=== PATIENT | male | born 2005 | race Caucasian/White ===

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

== ENCOUNTER 2024-01-05 10:51 | Emergency (ER) | payer SELFPAY ==
--- NOTE | ~2024-01-05 | XR_ITS ---
EXAMINATION: XR CHEST CLINICAL INFORMATION: Chest tightness COMPARISON: Chest radiograph from 02/10/2020 TECHNIQUE: 2 views of the chest were obtained. FINDINGS: No focal consolidation. No pneumothorax. Trachea is midline. Cardiac mediastinal silhouette is not enlarged. No large pleural effusion. Slight levocurvature of the thoracolumbar spine. Soft tissues are unremarkable. XR/XR chest 2V IMPRESSION: 1. No acute cardiopulmonary process. 2. Slight levocurvature of the thoracolumbar spine. Electronically signed by: Adriana Jones MD 01/05/2024 12:49 PM EDT
--- NOTE | 2024-01-05 10:54 | ECG_ITS ---
Test Reason : CHEST PAIN Blood Pressure : / mmHG Vent. Rate : 075 BPM Atrial Rate : 075 BPM P-R Int : 148 ms QRS Dur : 088 ms QT Int : 350 ms P-R-T Axes : 077 066 049 degrees QTc Int : 390 ms Normal sinus rhythm with sinus arrhythmia Normal ECG When compared with ECG of 10-FEB-2020 18:03, PREVIOUS ECG IS PRESENT No significant change was found Referred By: Generic ED Physician Electronically Signed By:VICKI PHILLIPS
[2024-01-05 11:18] VITALS: BP 113/78; PULSE 81; RESP 16; TEMP 36.9; O2SAT 98; BMI 19.7
--- NOTE | 2024-01-05 11:18 | ED.CHESTPAIN ---
HPI - Chest Pain General Chief Complaint: Chest Pain Stated Complaint: Chest pain Time Seen by Provider: 01/05/24 12:03 History of Present Illness ED Provider: Marlo MARTINEZ narrative: 18 y/o M patient; without significant PMH; presents from home reporting a few weeks of intermittent chest pain. The patient states the pain is non-radiating, substernal, and feels like a hand is squeezing his heart. Associated with shortness of breath and lightheadedness when chest pain occurs. He notes symptoms worse with hot conditions. Non-exertional chest pain. Did have one episode of NBNB vomiting and diarrhea today. He denies: abdominal pain, fever or chills, cough/congestion. No known sick contacts. No self or family history of cardiac disease. Patient is a smoker. Related Data Previous Rx's ?Medication ?Instructions ?Recorded ibuprofen 600 mg tablet 600 mg PO Q6H PRN pain #30 tabs 03/13/23 Allergies Allergy/AdvReac Type Severity Reaction Status Date / Time No Known Allergies Allergy Verified 01/05/24 11:20 [No Known Allergies*] Review of Systems Review of Systems: Yes all other systems are reviewed and are negative Neurologic: Denies Sensory deficit (Neuro) [facility] Past Medical History Attestation statement: The following information was validated with the patient. Source: old records reviewed Medical History Childhood asthma No known health problems Social History Social History Alcohol intake: never Smoked in Last 30 Days: No Use of substances other than those prescribed or required for medical reasons: Yes Substance Use Type: Marijuana Substance Use Frequency: Occasionally Advance Directives: No Advance Directives Information Provided: Yes Physical Exam Vital Signs: Vital Signs: Last Vital Signs Temp 98.5 F 01/05/24 11:18 Pulse 74 01/05/24 12:55 Resp 16 01/05/24 12:55 BP 113/76 01/05/24 12:55 Pulse Ox 100 01/05/24 12:55 O2 Del Method Room Air 01/05/24 12:55 BMI result Body Mass Index 19.7 Patient is afebrile and hemodynamically stable. Const: General: cooperative Orientation/consciousness: patient oriented x3 HEENT: Head: Yes normal to inspection and Yes atraumatic Eyes: General: appearance normal, both eyes and all related structures Pupils: Equal, round and reactive pupils present Neck: Neck: Yes normal visual inspection and Yes full ROM Chest: Chest palpation & inspection: normal inspection of the chest and normal palpation of entire chest wall Resp: Effort & Inspection: normal respiratory effort, able to speak in complete sentences, no cough and no respiratory distress Cardio: Rate: regular rate Rhythm: regular rhythm Peripheral pulses: Peripheral pulses 2+ throughout GI: Inspection: Yes normal to inspection and No Abdominal wall edema Palpation (GI): Soft to palpation, not firm, nontender, no guarding and not rigid Auscultation: normal bowel sounds Neuro: General: patient oriented x3 Cranial nerves: Yes Equal, round and reactive pupils present Motor exam (neuro): 5/5 motor strength present throughout Sensory Exam: No Sensory deficit (Neuro) Course Course Course Narrative: This is a Rapid Medical Examination (RME) performed by German Costello PA-C in triage. Full HPI, ROS, assessment and treatment plan per primary provider in the Main ED. 18 yo male presents to the ER for evaluation of intermittent central chest pains that started a couple of weeks ago. Worse when he is exposed to chemicals at work. He endorses SOB and lightheadedness along with the chest pain and tightness. AAO x3, with RRR on exam with clear lungs but diminished at the bases, discomfort w/ deep breaths. Plan: CXR, labs, EKG Reevaluation(s) Reevaluation #1: Patient is afebrile and hemodynamically stable. Reviewed triage orders. No leukocytosis. CXR unremarkable. CXR unremarkable for pneumonia, pneumothorax, aortic dissection. EKG reassuring without evidence of arrhythmia or CAD. Patient is PERC negative - unlikely pulmonary embolism. Troponin negative. Elevated total bilirubin - likely indirect - elevated at baseline. Patient is well appearing. Diagnostic studies reassuring. Recommend patient follow up with his PCP within the next 1 - 2 days for a re-evaluation. Plan: Discharge to home with PCP follow up Return precautions given Medical Decision Making Lab Data 01/05/24 12:07 01/05/24 12:07 Labs: Lab Results 01/05/24 Range/Units 12:07 WBC 5.4 (4.8-10.8) X10*3/uL RBC 5.26 (4.60-5.80) X10*6/uL Hgb 15.8 (14.0-18.0) g/dl Hct 45.6 (42.0-52.0) % MCV 86.7 (80.0-98.0) fL MCH 30.0 (27.0-33.0) pg MCHC 34.6 (31.0-36.0) g/dl RDW 12.3 (11.0-16.0) % Plt Count 237 (160-400) X10*3/uL MPV 11.4 (9.4-12.4) fL Immature Gran % (Auto) 0.2 (0.0-0.4) % Neut % (Auto) 63.9 (45-73) % Lymph % (Auto) 29.4 (20-40) % [place] % (Auto) 5.2 (2-11) % Eos % (Auto) 0.7 (0-4) % Baso % (Auto) 0.6 (0-2) % Lymph # (Auto) 1.6 (1.2-4.9) X10*3/uL [place] # (Auto) 0.3 (0.1-1.2) X10*3/uL Eos # (Auto) 0.0 (0.0-0.4) X10*3/uL Baso # (Auto) 0.0 (0.0-0.2) X10*3/uL Abs Immat Gran (auto) 0.01 (0.00-0.03) X10*3/uL Absolute Neuts (auto) 3.4 (2.0-8.3) x10*3/uL Absolute Nucleated RBC 0.000 (0.0-0.012) X10*3/uL Nucleated RBC % (auto) 0.0 (0.0-0.2) /100WBC Sodium 141 (135-145) mmol/L Potassium 4.6 (3.3-5.1) mmol/L Chloride 107 (96-108) mmol/L Carbon Dioxide 26 (22-29) mmol/L Anion Gap 13 (12-20) BUN 12 (9-16) mg/dL Creatinine 0.95 (0.5-1.4) mg/dL Estim Creat Clear Calc 103.8 Estimated GFR > 60 Random Glucose 86 (60-115) mg/dL Calcium 10.4 H D (8.4-10.2) mg/dL Magnesium 2.2 (1.6-2.6) mg/dL Total Bilirubin 4.4 H (0.0-1.0) mg/dL Direct Bilirubin 0.2 (0.0-0.5) mg/dL AST 26 (5-37) U/L ALT 13 (0-40) U/L Alkaline Phosphatase 60 (39-117) U/L Troponin I High Sens < 2.7 (<3.5-35.0) ng/L Total Protein 8.3 H (6.5-8.0) g/dL Albumin 5.1 H (3.5-5.0) g/dL Lipase 16 (8-78) U/L Radiology Impression Discussion of test interpretation with radiology: I have reviewed the radiologist's reading. Radiologist Impression: EXAMINATION: XR CHEST CLINICAL INFORMATION: Chest tightness COMPARISON: Chest radiograph from 02/10/2020 TECHNIQUE: 2 views of the chest were obtained. FINDINGS: No focal consolidation. No pneumothorax. Trachea is midline. Cardiac mediastinal silhouette is not enlarged. No large pleural effusion. Slight levocurvature of the thoracolumbar spine. Soft tissues are unremarkable. XR/XR chest 2V IMPRESSION: 1. No acute cardiopulmonary process. 2. Slight levocurvature of the thoracolumbar spine. Electronically signed by: Adriana Jones MD 01/05/2024 12:49 PM EDT Discharge Plan Discharge Clinical Impression: Atypical chest pain Patient Disposition: Home, Self-Care Instructions: Chest Pain (DC) Additional Instructions: As we discussed, you were seen today for chest pain. Your EKG, chest XR, and labs were reassuring. Please follow up with your PCP within 1 - 2 days for a re-evaluation and to discuss your recent emergency department visit. Return to the emergency department for: Worsening chest pain Difficulty breathing Passing out Prescriptions: No Action ibuprofen 600 mg tablet 600 mg PO Q6H PRN (Reason: pain) Qty: 30 0RF Referrals: Aaron Phan MD [Primary Care Provider] - 1 day Print Language: Sammarinese
[2024-01-05 12:00] VITALS: BP 115/73; PULSE 72; RESP 16; O2SAT 98
[2024-01-05 12:11] LABS: MANUAL DIFF FLAG NO
[2024-01-05 12:13] LABS: Basophils Percent Auto 0.6 % (0-2); Eosinophils Percent Auto 0.7 % (0-4); Hematocrit 45.6 % (42.0-52.0); Hemoglobin 15.8 g/dl (14.0-18.0); Imm Gran Abs Auto 0.01 X10*3/uL (0.00-0.03); Imm Gran Pct Auto 0.2 % (0.0-0.4); Lymphocytes Absolute Auto 1.6 X10*3/uL (1.2-4.9); Lymphocytes Percent Auto 29.4 % (20-40); Mean Corpuscular HGB Conc 34.6 g/dl (31.0-36.0); Mean Corpuscular Volume 86.7 fL (80.0-98.0); Mean Platelet Volume 11.4 fL (9.4-12.4); Monocytes Absolute Auto 0.3 X10*3/uL (0.1-1.2); Monocytes Percent Auto 5.2 % (2-11); Neutrophils Absolute Auto 3.4 x10*3/uL (2.0-8.3); Neutrophils Percent Auto 63.9 % (45-73); Platelet Count 237 X10*3/uL (160-400); Red Blood Count 5.26 X10*6/uL (4.60-5.80); Red Cell Distribution Width 12.3 % (11.0-16.0); White Blood Count 5.4 X10*3/uL (4.8-10.8)
[2024-01-05 12:33] LABS: Alanine Aminotransferase 13 U/L (0-40); Albumin Level 5.1 g/dL (3.5-5.0); Alkaline Phosphatase 60 U/L (39-117); Anion Gap 13 (12-20); Aspartate Amino Transferase 26 U/L (5-37); Bilirubin Direct 0.2 mg/dL (0.0-0.5); Bilirubin Total 4.4 mg/dL (0.0-1.0); Blood Urea Nitrogen 12 mg/dL (9-16); Calcium 10.4 mg/dL (8.4-10.2); Carbon Dioxide 26 mmol/L (22-29); Chloride 107 mmol/L (96-108); Creatinine Clr Calc Pharmacy 103.8; Estimated Glomerular Filt Rate > 60; Glucose Random 86 mg/dL (60-115); Magnesium 2.2 mg/dL (1.6-2.6); Potassium 4.6 mmol/L (3.3-5.1); Sodium 141 mmol/L (135-145); Total Protein 8.3 g/dL (6.5-8.0)
[2024-01-05 12:35] LABS: Troponin-I High Sensitivity < 2.7 ng/L (<3.5-35.0)
[2024-01-05 12:55] VITALS: BP 113/76; PULSE 74; PULSE 78; RESP 16; O2SAT 100
[2024-01-05 13:06] LABS: Lipase 16 U/L (8-78)
[2024-01-05 13:30] VITALS: BP 113/76; PULSE 74; RESP 16; TEMP 36.9; O2SAT 100
== END 2024-01-05 13:30 | disposition home or self-care (01) ==
PROVIDERS: Physician Assistant; Emergency Provider Emergency Medicine; PCP Pediatrics
DX: R07.89 Other chest pain (principal); R06.02 Shortness of breath; Z79.899 Other long term (current) drug therapy
CPT/HCPCS: 36415; 71046; 80048; 80076; 83690; 83735; 84484; 85025; 93005; 99283; 99285

== ENCOUNTER 2024-07-17 18:38 | Emergency (ER) | payer MEDICAID, SELFPAY ==
[2024-07-17 18:41] VITALS: BP 119/58; PULSE 107; RESP 18; TEMP 37.2; O2SAT 95; BMI 19.2
--- NOTE | 2024-07-17 19:26 | PC.NURSE ---
Patient states was playing basketball and struck head on the gazebo. c/o dizziness, lightheaded and the left side feels numb. Also struck back occurred approx 1 hour ago.
[2024-07-17 19:30] VITALS: BP 117/75; PULSE 85; RESP 16; TEMP 36.9; O2SAT 98
--- NOTE | 2024-07-17 19:38 | ED.GENADULT ---
HPI - General Adult General Chief complaint: Head Injury Stated complaint: head injury Time Seen by Provider: 07/17/24 19:38 History of Present Illness ED Provider: Leyla MARTINEZ narrative: The patient is a 19-year-old male who was playing basketball. He says that he went for a lay-up and then turned around to see if the fall when in the basket. He was moving backwards when he collided with a beam behind him. He struck the back of his head and his left lower back or left posterior pelvis against the beam. He says that he did not have loss of consciousness but felt that the blow was quite hard to his head and to his lower back and he felt stunned for awhile. He felt dizzy as if he might pass out but he did not pass out. He did not end up on the ground at any point. However he was very concerned and came to the emergency room. Related Data Previous Rx's ?Medication ?Instructions ?Recorded ibuprofen 600 mg tablet 600 mg PO Q6H PRN pain #30 tabs 03/13/23 acetaminophen 500 mg capsule 1,000 mg (2 x 500 mg) PO Q8H PRN 07/17/24 fever or pain #14 caps ibuprofen 400 mg tablet 400 mg PO Q6H PRN pain #14 tabs 07/17/24 Allergies Allergy/AdvReac Type Severity Reaction Status Date / Time No Known Allergies Allergy Verified 07/17/24 18:46 [No Known Allergies*] Review of Systems Review of Systems: Yes all other systems are reviewed and are negative [facility] Past Medical History Medical History Childhood asthma No known health problems Social History Social History Alcohol intake: never Smoked in Last 30 Days: No Substance Use Type: Marijuana Advance Directives: No Advance Directives Information Provided: Yes Do you have a plan to hurt others: No Plan Physical Exam ED Vital Signs: Vital Signs - 24 hr 07/17/24 18:41 07/17/24 19:30 Temperature 98.9 F 98.4 F Pulse Rate 107 H 85 Respiratory Rate 18 16 Blood Pressure 119/58 L 117/75 Pulse Oximetry 95 98 Oxygen Delivery Method Room Air Room Air BMI result Body Mass Index 19.2 Const Other: The patient is awake and alert and does not appear obviously injured or in distress. HENMT Other: There is tenderness to the occipital scalp but I do not appreciate any signs of definite injury such as soft tissue swelling or abrasion. The appearance of the face is normal. no raccoon eyes or suarez sign. No hemotympanum. Mucous membranes are moist. The pharynx is normal. Eyes General: appearance normal, both eyes and all related structures Alignment and Position: alignment normal Periorbital: periorbital findings normal Eyelids: Yes eyelids normal Conjunctivae: conjunctivae normal Sclerae: sclerae normal Pupils: Equal, round and reactive pupils present EOM: EOMs intact bilaterally Neck Other: No posterior midline C-spine tenderness of the neck. He has full range of motion of the neck without apparent discomfort. C-spine is clinically clear. Resp Effort & Inspection: normal respiratory effort Auscultation: clear to auscultation bilaterally Cardio Rate: regular rate Rhythm: regular rhythm Heart sounds: S1 normal heart sound present and S2 normal heart sound present Back/Spine/Pelvis Other: The patient has some tenderness in the region of the left posterior superior iliac spine. There was no midline vertebral tenderness. Skin Other: I do not appreciate any bruising. The skin is dry and unremarkable. Neuro Other: The patient is awake and alert with a normal level of alertness and a normal mental status. Cranial nerves 2-12 are intact. he moves his extremities normally with normal strength. There is no pronator drift. He has a normal gait. No footdrop. 2+ reflexes at the knees and ankles. Cranial nerves: Yes Equal, round and reactive pupils present Extrem Other: No sign of injury to the extremities. Medical Decision Making Medical Decision Making [facility] Narrative: The patient is a generally healthy 19-year-old male on no medications who sustained a blow to the back of his head and also to his left lower back in the region of the left posterior superior iliac spine. He was walking backwards when he walked into a pole. He had no loss of consciousness. He did not have the up on the ground. He is complaining of a headache and pain in the left posterior superior iliac spine area. I find no physical exam findings of a significant head injury. His mental status is normal. I think his mechanism of injury in his clinical exam are very unlikely to be consistent with any significant internal injuries. I do not see an indication for imaging. He will be treated symptomatically and should follow up with his regular doctor's office if he has persistent symptoms. Discharge Plan Discharge Clinical Impression: Head injury, Contusion of lower back Patient Disposition: Home, Self-Care Instructions: Head Injury (ED) Additional Instructions: I think it is very unlikely you have any fractures or internal injuries. Nevertheless a person can feel quite unwell after a head injury for a few days. Please rest and take it easy for the next few days. Use ibuprofen and acetaminophen as needed. Please try to follow up at the [facility] for a recheck if not getting better in a couple of days. Return to the emergency room if significantly worse. Prescriptions: New ibuprofen 400 mg tablet 400 mg PO Q6H PRN (Reason: pain) Qty: 14 0RF acetaminophen 500 mg capsule 1,000 mg PO Q8H PRN (Reason: fever or pain) Qty: 14 0RF No Action ibuprofen 600 mg tablet 600 mg PO Q6H PRN (Reason: pain) Qty: 30 0RF Referrals: [facility] [Provider Group] Print Language: Upper Sorbian
[2024-07-17 20:00] VITALS: BP 109/75; PULSE 95; RESP 14; TEMP 36.7; O2SAT 95
[2024-07-17] MEDS: Acetaminophen 325 MG TABLET 975 MG PO (20:17)
[2024-07-17] MEDS: Ketorolac Tromethamine 30 MG/ML VIAL IM (20:17)
[2024-07-17 20:23] VITALS: BP 109/75; PULSE 95; RESP 14; TEMP 36.7; O2SAT 95
== END 2024-07-17 20:24 | disposition home or self-care (01) ==
PROVIDERS: Emergency Provider Emergency Medicine
DX: S09.90XA Unspecified injury of head, initial encounter (principal); S30.0XXA Contusion of lower back and pelvis, initial encounter; W22.8XXA Striking against or struck by other objects, initial encounter; Y93.9 Activity, unspecified; Y92.9 Unspecified place or not applicable; Y99.9 Unspecified external cause status
CPT/HCPCS: 96372; 99284; J1885

== ENCOUNTER 2024-10-28 17:27 | Emergency (ER) | payer OTHER, SELFPAY ==
--- NOTE | ~2024-10-28 | XR_ITS ---
CLINICAL HISTORY: pain after fall 3 view right ankle Comparison: None provided Findings: 6 mm avulsion fracture fragment is distal inferior to distal fibula as can be seen with lateral ligament injury and/or avulsion. Moderate to severe soft tissue swelling is present with moderate effusion. No dislocation. No radiopaque foreign body. IMPRESSION: 1. Small fragment distal to the fibula as can be seen with lateral ligament avulsion. 2. Soft tissue swelling with effusion present. This document has been electronically signed by: Bam Phillip MD on 10/28/2024 19:07:40
[2024-10-28 18:05] VITALS: BP 100/64; PULSE 58; RESP 16; TEMP 36.1; O2SAT 100; BMI 28.2
--- NOTE | 2024-10-28 18:13 | ED.GENADULT ---
HPI - General Adult General Chief complaint: Extremity Injury, Lower Stated complaint: ? Fractur of rt ankle Time Seen by Provider: 10/28/24 19:44 Source: patient, RN notes reviewed and old records reviewed Mode of arrival: wheelchair Limitations: no limitations History of Present Illness ED Provider: Keaton HPI narrative: 19-year-old male presents for evaluation of right ankle pain. He was playing basketball and when he jumped up, he landed awkwardly on his right foot/ankle. He describes an inversion injury. He has pain mostly to the outside aspect of his right ankle. His pain is 7/10 Denies any other injuries Related Data Previous Rx's ?Medication ?Instructions ?Recorded ibuprofen 600 mg tablet 600 mg PO Q6H PRN pain #30 tabs 03/13/23 acetaminophen 500 mg capsule 1,000 mg (2 x 500 mg) PO Q8H PRN 07/17/24 fever or pain #14 caps ibuprofen 400 mg tablet 400 mg PO Q6H PRN pain #14 tabs 07/17/24 Allergies Allergy/AdvReac Type Severity Reaction Status Date / Time No Known Allergies (No Known Allergy Verified 10/28/24 18:08 Allergies*) Review of Systems Musculoskeletal: Musculoskeletal: Reports arthralgias, Reports joint swelling and Reports limited range of motion PMFSH Past Medical History Medical History Childhood asthma No known health problems Social History Social History Alcohol intake: never Substance Use Type: Marijuana Advance Directives: No Advance Directives Information Provided: Yes Physical Exam ED Vital Signs: Vital Signs - 24 hr 10/28/24 18:05 10/28/24 20:17 Temperature 97.0 F 98.2 F Pulse Rate 58 65 Respiratory Rate 16 20 Blood Pressure 100/64 115/64 Pulse Oximetry 100 98 Oxygen Delivery Method Room Air Room Air BMI result Body Mass Index 28.2 Const General: healthy appearing, comfortable, no acute distress, alert and awake Nutritional Appearance: well nourished Orientation/consciousness: patient oriented x3 HENMT Head: Yes normocephalic and Yes atraumatic Eyes Eyelids: Yes eyelids normal Conjunctivae: conjunctivae normal Sclerae: sclerae normal Corneas: corneas normal Pupils: Equal, round and reactive pupils present EOM: EOMs intact bilaterally Neck Neck: Yes full ROM Resp Effort & Inspection: normal respiratory effort, able to speak in complete sentences and not labored Skin General skin exam: elasticity normal Neuro General: patient oriented x3 Cranial nerves: Yes Equal, round and reactive pupils present and Yes Bilaterally intact EOM present Cognition (Neuro): normal cognition Extrem Other: There was moderate right ankle edema with developing ecchymosis. Most of this is centered around the right lateral malleolus. This area is exquisitely tender to palpation. He does have some edema and ecchymosis extending to the medial malleolus. Less tenderness on exam in this region. There is some mild Achilles tenderness, but there is no bogginess to the area, the Achilles tendon is palpable and the patient is able to plantar flex with full range of motion Course Course Course Narrative: RME, this is a rapid medical exam performed by Steven Pugh please refer to primary provider for complete H&P- a 19-year-old male presents for evaluation of right ankle pain after twisting it while playing basketball earlier today. Plan for x-ray. Procedures Orthopedic Splinting/Casting Injury #1: Side: right Lower Extremity Injury Location: ankle Lower Extremity Immobilizer: stirrup splint Other Orthopedic Equipment: crutches Additional Comments: Postprocedure, neurovascular status remains intact. Medical Decision Making Medical Decision Making MDM Narrative: 19-year-old male presents for evaluation of right ankle injury. He has no evidence of Achilles tendon injury as this appears intact on palpation and he has intact range of motion with plantar flexion. X-ray of the right ankle shows an avulsion injury of the right lateral malleolus. The patient was placed in a stirrup splint, see procedure note. He will follow up with Orthopedics, Differential Diagnosis Differential Diagnoses: The differential diagnosis associated with the presentation includes Ankle sprain Ankle fracture Contusion Avulsion injury Achilles tendon rupture less likely Independent Interpretation I performed an independent interpretation of an: Plain X-Ray Interpretation: Agree with Radiology interpretation, noted right lateral malleolus avulsion injury Radiology Impression Discussion of test interpretation with radiology: I have reviewed the radiologist's reading. Radiologist Impression: Findings: 6 mm avulsion fracture fragment is distal inferior to distal fibula as can be seen with lateral ligament injury and/or avulsion. Moderate to severe soft tissue swelling is present with moderate effusion. No dislocation. No radiopaque foreign body. IMPRESSION: 1. Small fragment distal to the fibula as can be seen with lateral ligament avulsion. 2. Soft tissue swelling with effusion present. This document has been electronically signed by: Bam Phillip MD on 10/28/2024 19:07:40 Discharge Plan Discharge Clinical Impression: Ankle fracture Patient Disposition: Home, Self-Care Instructions: Ankle Fracture (ED) Additional Instructions: You have an avulsion fracture of the right lateral ankle. You were placed in a splint. Keep this on until you follow up with Orthopedics. Call them on Thursday to schedule an appointment. Elevate the leg above your heart while resting. Use ibuprofen as needed for pain Follow-up with orthopedics at the number provided Prescriptions: No Action ibuprofen 600 mg tablet 600 mg PO Q6H PRN (Reason: pain) Qty: 30 0RF ibuprofen 400 mg tablet 400 mg PO Q6H PRN (Reason: pain) Qty: 14 0RF acetaminophen 500 mg capsule 1,000 mg PO Q8H PRN (Reason: fever or pain) Qty: 14 0RF Referrals: [facility] [place] [facility] [Provider Group] Referral Note: right ankle fracture Print Language: [place]
[2024-10-28 20:17] VITALS: BP 115/64; PULSE 65; RESP 20; TEMP 36.8; O2SAT 98
[2024-10-28 20:24] VITALS: BP 115/64; PULSE 65; RESP 20; TEMP 36.8; O2SAT 98
== END 2024-10-28 20:43 | disposition home or self-care (01) ==
PROVIDERS: Emergency Provider Emergency Medicine
DX: S82.491A Other fracture of shaft of right fibula, initial encounter for closed fracture (principal); X50.1XXA Overexertion from prolonged static or awkward postures, initial encounter; M25.571 Pain in right ankle and joints of right foot; Y93.67 Activity, basketball; Y92.310 Basketball court as the place of occurrence of the external cause; Y99.8 Other external cause status
CPT/HCPCS: 29515; 73610; 99284

== ENCOUNTER → 2024-10-28 18:13 | Outpatient (BNV) | payer SELFPAY | PROVIDERS: Visit Provider Radiology Neuroradiology | DX: S82.831A Other fracture of upper and lower end of right fibula, initial encounter for closed fracture (principal); M25.471 Effusion, right ankle | CPT/HCPCS: 73610 ==

== ENCOUNTER 2024-12-13 14:00 | Outpatient (RCR) | payer MEDICAID, SELFPAY | END 2025-01-06 11:31 | disposition home or self-care (01) | LOC: HO.PT 14:00 | PROVIDERS: PCP Nurse Practitioner; Visit Provider Physician Assistant | DX: S93.401D Sprain of unspecified ligament of right ankle, subsequent encounter (principal) | CPT/HCPCS: 97110; 97162 ==